=== PATIENT | female | born 1950 | race Caucasian/White ===

== ENCOUNTER → 2022-03-16 | Outpatient (CLI) | payer OTHER ==
[~2022-03-16] MED LIST: ASPI325 PO; ASPI81CH PO; ATOR10 PO; CALCIUM 500 +1 EAC2 PO; HYDR1TAB94 PO; INSULANPEN SC; METF500 PO; METO25ER PO; Prinivil10 MG PO; Women's Daily1 EACH PO
== END | disposition home or self-care (01) ==
LOC: LAB SHORT 09:30 → LAB 09:30
DX: R30.0 Dysuria (principal)
CPT/HCPCS: 87077; 87086; 87186

== ENCOUNTER → 2022-05-01 | Outpatient (CLI) | payer OTHER | LOC: LAB 09:39 → LAB SHORT 09:39 | DX: N39.0 Urinary tract infection, site not specified (principal) | CPT/HCPCS: 87077; 87086; 87186 ==

== ENCOUNTER → 2025-02-11 | Outpatient (CLI) | payer OTHER ==
[2025-02-11 16:25] LABS: Osmolality, Urine 264.0 mos/kg (15-1400)
[2025-02-11 16:38] LABS: Creatinine, Urine Random 20.5 mg/dL (27.00-270.00); Microalb/Creat Ratio UR, Rand 25.756 mg/g (0.000-30.000); Microalbumin, Random Urine 5.28 mg/L (0.000-20.000); Sodium, Urine, Random 69.0 mmol/L (20-110)
== END | disposition home or self-care (01) ==
LOC: LAB SHORT 06:30 → LAB 06:30
PROVIDERS: Internal Medicine
DX: E11.9 Type 2 diabetes mellitus without complications (principal); E87.1 Hypo-osmolality and hyponatremia; Z79.4 Long term (current) use of insulin
CPT/HCPCS: 82043; 82570; 83935; 84300